=== PATIENT | male | born 1985 | race Caucasian/White ===

== ENCOUNTER 2020-01-25 14:19 | Emergency (ER) | payer OTHER ==
[~2020-01-25] VITALS: Ht 175.3 cm; Wt 79.5 kg
[2020-01-25 14:25] VITALS: BP 128/66
[2020-01-25] MEDS ORDERED: XOPENEX HFA IN (15:00)
[2020-01-25] MEDS ORDERED: ZOLOFT50 MG PO (15:00)
[2020-01-25] MEDS ORDERED: VISTARIL 50MG C50 M1 PO (15:01)
== END 2020-01-25 16:30 | DRG 605 ==
LOC: ED 14:19
PROC: 0HQDXZZ Repair Right Lower Arm Skin, External Approach (ICD-10-PCS; principal; 2020-01-25)
DX: S61.511A Laceration without foreign body of right wrist, initial encounter (principal); S60.222A Contusion of left hand, initial encounter; W17.89XA Other fall from one level to another, initial encounter; Y93.89 Activity, other specified; Y92.143 Cell of prison as the place of occurrence of the external cause